=== PATIENT | female | born 1975 | race Two or more races ===

== ENCOUNTER 2019-05-20 22:46 | Emergency (ER) | payer MEDICAID ==
[~2019-05-20] VITALS: Ht 152.4 cm; Wt 108.0 kg
[2019-05-21 00:03] LABS: CARBON DIOXIDE 23.4 mmol/L (21-32); CHLORIDE SERUM 97 mmol/L (98-107); GLUCOSE SERUM 254 mg/dL (74-106); POTASSIUM SERUM 3.9 mmol/L (3.5-5.1); SODIUM SERUM 136 mmol/L (136-145)
[2019-05-21 00:04] VITALS: BP 178/104
[2019-05-21 00:04] LABS: ALBUMIN 3.9 g/dL (3.4-5.0); ALKALINE PHOSPHATASE 129 U/L (46-116); ALT/SGPT 118 U/L (14-59); AST/SGOT 43 U/L (15-37); BILIRUBIN TOTAL 0.3 mg/dL (0.20-1.00); CALCIUM 9.9 mg/dL (8.5-10.1); CREATININE SERUM 0.8 mg/dL (0.6-1.0); GFR1 > 60 mL/min; LIPASE 146 IU/L (73-393); TOTAL PROTEIN, SERUM 8.3 g/dL (6.4-8.2)
[2019-05-21 00:20] LABS: BASOPHIL % 0.2 % (0-2); PLATELET COUNT 290 x10^3mcL (130-400); RED CELL DISTRIBUTION WIDTH 13.8 % (11.5-14.5)
== END 2019-05-21 00:04 | disposition short-term general hospital (02) ==
LOC: ED 22:46
PROVIDERS: Emergency Medicine
DX: I21.3 ST elevation (STEMI) myocardial infarction of unspecified site (principal); I10 Essential (primary) hypertension
CPT/HCPCS: 83880; J1644; J2270; J2405; Q0092